=== PATIENT | male | born 1960 | race American Indian/Alaskan Native ===

== ENCOUNTER 2016-03-15 08:48 | Day surgery (SDC) | payer MEDICARE ==
[2016-03-14 19:17] LABS: Hematocrit 20.9 % (35.5-45.6); Hemoglobin 6.9 gm/dl (11.8-15.2)
[2016-03-15] MEDS ORDERED: TYLENOL PO ONE (09:01)
[2016-03-15] MEDS ORDERED: BENADRYL PO ONE (09:01)
[2016-03-15] MEDS ORDERED: NACL 0.9% 250ML 250 ML ONE (09:22)
[2016-03-15] MEDS ORDERED: NACL 0.9% 250ML 250 ML IV ONE (09:35)
[2016-03-15 14:07] VITALS: BP 157/75
== END 2016-03-15 14:05 | disposition home or self-care (01) ==
LOC: OPU 08:48
PROVIDERS: ATTEND Internal Medicine Nephrology
DX: D64.89 Other specified anemias (principal); F17.210 Nicotine dependence, cigarettes, uncomplicated
CPT/HCPCS: 36415; 36430; 85014; 85018; 86850; 86900; 86901; 86920; J7050; P9016